=== PATIENT | male | born 1980 | race Caucasian/White ===

== ENCOUNTER 2022-02-13 08:49 | Emergency (ER) | payer SELFPAY ==
[~2022-02-13] VITALS: Ht 175.3 cm; Wt 86.2 kg
[2022-02-13 08:50] VITALS: BP_SYST 151
[2022-02-13] MEDS ORDERED: AMPICILLIN SODIUM/SULBACTAM NA 3 GM in NS 100 ML IV ONE (10:30)
[2022-02-13] MEDS ORDERED: VANCOMYCIN HCL 1,000 MG in NS 250 ML IV ONE (10:30)
[2022-02-13 10:51] LABS: BASOPHILS # (AUTO) 0.1 K/uL (0.0-0.2); BASOPHILS % (AUTO) 1.2 % (0.0-2.0); EOSINOPHILS # (AUTO) 0.8 K/uL (0.0-0.4); EOSINOPHILS % (AUTO) 12.9 % (0.0-4.0); HEMATOCRIT 32.9 % (36-54); LYMPHOCYTES # (AUTO) 1.6 K/uL (1.0-5.5); LYMPHOCYTES % (AUTO) 26.2 % (20.5-51.5); MEAN CORPUSCULAR HEMOGLOBIN 27 pg (27-31); MEAN CORPUSCULAR HGB CONC 33 % (32-36); MEAN CORPUSCULAR VOLUME 80 fL (79.0-98.0); MONOCYTES # (AUTO) 0.5 K/uL (0.0-1.0); MONOCYTES % (AUTO) 7.6 % (1.7-9.3); NEUTROPHILS # (AUTO) 3.1 K/uL (1.8-7.7); NEUTROPHILS % (AUTO) 52.1 % (40.0-70.0); PLATELET COUNT (AUTO) 312 K/uL (130-430); RED BLOOD CELL COUNT(AUTO) 4.14 MIL/uL (4.2-6.2); RED CELL DISTRIBUTION WIDTH 15.5 % (9.0-15.0)
[2022-02-13 11:10] LABS: ANION GAP 4 (5-15); CALCIUM 8.8 mg/dL (8.4-11.0); CHLORIDE 105 mmol/L (98-107); CREATININE 1.03 mg/dL (0.55-1.30); GLUCOSE 117 mg/dL (70-99); POTASSIUM 4.7 mmol/L (3.5-5.1); UREA NITROGEN, BLOOD 15 mg/dL (8-21)
[2022-02-13 11:26] LABS: ALBUMIN 2.9 g/dL (3.4-4.8); ASPARTATE AMINOTRANSFERASE 16 U/L (10-37); TOTAL BILIRUBIN 0.2 mg/dL (0.0-1.0)
[2022-02-13 11:30] LABS: GFR AFRICAN AMERICAN 101 mL/min (>90)
[2022-02-13 11:48] LABS: ALANINE AMINOTRANSFERASE 12 U/L (12-78)
[2022-02-13 12:04] LABS: ERYTHROCYTE SEDIMENTATION RATE 57 MM/HR (0-15)
[2022-02-13] MEDS ORDERED: CIPR-260 PO (13:50)
[2022-02-13] MEDS ORDERED: SULF1TAB48 PO (13:50)
[2022-02-13 19:39] VITALS: BP_SYST 134
== END 2022-02-13 19:39 | disposition home or self-care (01) ==
LOC: SED 08:49
DX: E11.621 Type 2 diabetes mellitus with foot ulcer (principal); M86.172 Other acute osteomyelitis, left ankle and foot; M86.672 Other chronic osteomyelitis, left ankle and foot; E11.9 Type 2 diabetes mellitus without complications; Z79.899 Other long term (current) drug therapy
CPT/HCPCS: 99284; 96365; 80053; 85025; 85651; 87040; 84484; 36415; 73630; 96368; 83605; 87070; 87075; J0295